=== PATIENT | male | born 1980 | race Caucasian/White ===

== ENCOUNTER 2020-07-08 18:38 | Emergency (ER) | payer OTHER ==
[2020-07-08 21:00] LABS: HEMOGLOBIN 15.9 gm/dl (14.0-17.5); RED BLOOD COUNT 4.97 M/UL (4.20-5.50); WHITE BLOOD COUNT 7.2 K/UL (4.5-11.0)
[2020-07-08 21:22] LABS: BUN/CREATININE RATIO 17 (0-10)
== END 2020-07-09 01:20 | disposition home or self-care (01) ==
LOC: ER1 18:38
PROVIDERS: Preventive Medicine Occupational Medicine
DX: R07.89 Other chest pain (principal); R00.2 Palpitations; Z88.1 Allergy status to other antibiotic agents; R53.1 Weakness; Z20.822 Contact with and (suspected) exposure to COVID-19
CPT/HCPCS: 0240U; 70450; 71045; 80053; 82550; 82553; 83690; 83874; 84439; 84443; 84484; 85025; 85379; 85652; 86140; 93005; 93242; 99285; J7030

== ENCOUNTER 2020-09-28 00:03 | Emergency (ER) | payer OTHER | END 2020-09-28 01:31 | disposition left against medical advice (07) | LOC: ER1 00:03 | DX: Z53.21 Procedure and treatment not carried out due to patient leaving prior to being seen by health care provider (principal) | CPT/HCPCS: 93005 ==

== ENCOUNTER 2020-10-05 07:06 | Observation (INO) | payer OTHER ==
[~2020-10-05] VITALS: Ht 177.8 cm; Wt 98.0 kg
[2020-10-05 07:40] LABS: HEMOGLOBIN 15.4 gm/dl (14.0-17.5); RED BLOOD COUNT 5.16 M/UL (4.20-5.50); WHITE BLOOD COUNT 6.7 K/UL (4.5-11.0)
[2020-10-05 08:24] LABS: BUN/CREATININE RATIO 15 (0-10)
[2020-10-05] MEDS ORDERED: COZAAR 50MG TAB50 MG PO (15:03)
[2020-10-05] MEDS ORDERED: PROTONIX40 MG PO (15:04)
[2020-10-05] MEDS ORDERED: ALLEGRA ALLERG180 MG PO (15:04)
[2020-10-05] MEDS ORDERED: TENORMIN 25 MG25 MG PO (15:04)
[2020-10-05] MEDS ORDERED: LEXAPRO10 MG PO (15:04)
[2020-10-06 00:49] LABS: HEMOGLOBIN 16.1 gm/dl (14.0-17.5); RED BLOOD COUNT 5.05 M/UL (4.20-5.50)
[2020-10-06 01:47] LABS: BUN/CREATININE RATIO 14 (0-10)
[2020-10-06] MEDS ORDERED: ASPIRIN EC81 MG PO (11:30)
[2020-10-11 05:10] LABS: METANEPHRINE, PL 16.9 pg/mL (0.0-88.0); NORMETANEPHRINE, PL 73.5 pg/mL (0.0-125.8)
== END 2020-10-06 13:41 | disposition home or self-care (01) ==
LOC: ER1 07:06 → CDU 14:52 → MED SURG 4 21:01
PROVIDERS: Emergency Medicine; Physician Assistant; ADMIT Internal Medicine
DX: R00.2 Palpitations (principal); R20.2 Paresthesia of skin; I10 Essential (primary) hypertension; I48.0 Paroxysmal atrial fibrillation; F41.9 Anxiety disorder, unspecified; K76.0 Fatty (change of) liver, not elsewhere classified; R74.8 Abnormal levels of other serum enzymes; Z20.822 Contact with and (suspected) exposure to COVID-19; Z88.1 Allergy status to other antibiotic agents; Z79.899 Other long term (current) drug therapy; Z86.79 Personal history of other diseases of the circulatory system; Z83.2 Family history of diseases of the blood and blood-forming organs and certain disorders involving the immune mechanism
CPT/HCPCS: ECHO; 36415; 70450; 71045; 80048; 80053; 82550; 82553; 83690; 83735; 83835; 83874; 84439; 84443; 84484; 85025; 93005; 93306; 99285; G0378; J7030; Q9967; U0002

== ENCOUNTER 2020-11-21 21:55 | Emergency (ER) | payer OTHER ==
[~2020-11-21 21:55] MED LIST: ALLEGRA ALLERG180 MG PO; ASPIRIN EC81 MG PO; COZAAR 50MG TAB50 MG PO; LEXAPRO10 MG PO; PROTONIX40 MG PO; TENORMIN 25 MG25 MG PO
[2020-11-21 22:33] LABS: HEMOGLOBIN 15.2 gm/dl (14.0-17.5); RED BLOOD COUNT 4.79 M/UL (4.20-5.50); WHITE BLOOD COUNT 6.7 K/UL (4.5-11.0)
[2020-11-21 22:58] LABS: BUN/CREATININE RATIO 15 (0-10)
== END 2020-11-22 00:30 | disposition home or self-care (01) ==
LOC: ER1 21:55
PROVIDERS: Physician Assistant
DX: R00.2 Palpitations (principal); I48.91 Unspecified atrial fibrillation; F41.9 Anxiety disorder, unspecified; Z90.49 Acquired absence of other specified parts of digestive tract
CPT/HCPCS: 71045; 80053; 82550; 82553; 83874; 84439; 84443; 84484; 85025; 93005; 99285

== ENCOUNTER 2021-04-09 08:01 | Emergency (ER) | payer OTHER ==
[2021-04-09 08:44] LABS: HEMOGLOBIN 15.7 gm/dl (14.0-17.5); RED BLOOD COUNT 5.14 M/UL (4.20-5.50); WHITE BLOOD COUNT 6.2 K/UL (4.5-11.0)
[2021-04-09 09:08] LABS: BUN/CREATININE RATIO 13 (0-10)
[2021-04-09] MEDS ORDERED: AUGMENTIN 875-1 EACH PO (10:53)
== END 2021-04-09 12:50 | disposition home or self-care (01) ==
LOC: ER1 08:01
PROVIDERS: Emergency Medicine
DX: K52.9 Noninfective gastroenteritis and colitis, unspecified (principal); Q53.9 Undescended testicle, unspecified
CPT/HCPCS: 80053; 81001; 83690; 85025; 99284; J7030; Q9967

== ENCOUNTER 2021-04-27 02:46 | Emergency (ER) | payer BC ==
[~2021-04-27 02:46] MED LIST changes: +AUGMENTIN 875-1 EACH PO
[2021-04-27 03:36] LABS: HEMOGLOBIN 17.3 gm/dl (14.0-17.5); RED BLOOD COUNT 5.44 M/UL (4.20-5.50); WHITE BLOOD COUNT 7.5 K/UL (4.5-11.0)
[2021-04-27 04:06] LABS: BUN/CREATININE RATIO 13 (0-10)
[2021-04-27] MEDS ORDERED: BENTYL 20MG TAB20 MG PO (06:26)
[2021-04-27] MEDS ORDERED: PROBIOTIC & AC1 EACH PO (06:26)
== END 2021-04-27 06:39 | disposition home or self-care (01) ==
LOC: ER1 02:46
PROVIDERS: Student in an Organized Health Care Education/Training Program
DX: R10.9 Unspecified abdominal pain (principal); G89.29 Other chronic pain; R10.817 Generalized abdominal tenderness; K21.9 Gastro-esophageal reflux disease without esophagitis; Z88.1 Allergy status to other antibiotic agents
CPT/HCPCS: 71046; 80053; 81001; 82550; 82553; 83690; 83874; 84484; 85025; 93005; 96374; 99284; J2405

== ENCOUNTER 2021-06-01 08:00 | Observation (INO) | payer BC ==
[~2021-06-01] VITALS: Ht 177.8 cm; Wt 93.4 kg
[~2021-06-01 08:00] MED LIST changes: +BENTYL 20MG TAB20 MG PO; +PROBIOTIC & AC1 EACH PO
[2021-06-01 08:24] LABS: HEMOGLOBIN 16.6 gm/dl (14.0-17.5); RED BLOOD COUNT 5.38 M/UL (4.20-5.50); WHITE BLOOD COUNT 5.9 K/UL (4.5-11.0)
[2021-06-01 09:34] LABS: BUN/CREATININE RATIO 14 (0-10)
[2021-06-01] MEDS ORDERED: SAW PALMETTO160 MG PO (13:43)
== END 2021-06-01 18:19 | disposition home or self-care (01) ==
LOC: ER1 08:00 → CDU 09:58 → CCU 14:25
PROVIDERS: Emergency Medicine; ADMIT Internal Medicine
DX: R07.89 Other chest pain (principal); I48.0 Paroxysmal atrial fibrillation; I10 Essential (primary) hypertension; E88.01 Alpha-1-antitrypsin deficiency; Z20.822 Contact with and (suspected) exposure to COVID-19; Z86.16 Personal history of COVID-19; Z88.1 Allergy status to other antibiotic agents; Z88.2 Allergy status to sulfonamides; Z88.8 Allergy status to other drugs, medicaments and biological substances; Z79.899 Other long term (current) drug therapy
CPT/HCPCS: 71045; 80053; 82550; 82553; 83874; 84484; 85025; 85379; 93005; 99285; G0378; U0002

== ENCOUNTER 2021-06-26 15:28 | Emergency (ER) | payer BC ==
[~2021-06-26 15:28] MED LIST changes: +SAW PALMETTO160 MG PO
[2021-06-26 15:50] LABS: RED BLOOD COUNT 5.15 M/UL (4.20-5.50); WHITE BLOOD COUNT 6.5 K/UL (4.5-11.0)
[2021-06-26 16:14] LABS: BUN/CREATININE RATIO 16 (0-10)
== END 2021-06-26 18:10 | disposition home or self-care (01) ==
LOC: ER1 15:28
PROVIDERS: Physician Assistant
DX: R00.2 Palpitations (principal); R55 Syncope and collapse; Z88.1 Allergy status to other antibiotic agents; Z88.8 Allergy status to other drugs, medicaments and biological substances
CPT/HCPCS: 71045; 80053; 82550; 82553; 84439; 84443; 84484; 85025; 93005; 99285; Q9967

== ENCOUNTER → 2021-11-28 | Day surgery (SDC) | payer OTHER | END | disposition home or self-care (01) | LOC: OR 09:55 | DX: R10.13 Epigastric pain (principal); R63.4 Abnormal weight loss; K29.70 Gastritis, unspecified, without bleeding; K21.9 Gastro-esophageal reflux disease without esophagitis; I10 Essential (primary) hypertension; E78.00 Pure hypercholesterolemia, unspecified; K58.9 Irritable bowel syndrome, unspecified; Z88.1 Allergy status to other antibiotic agents; Z79.899 Other long term (current) drug therapy | CPT/HCPCS: J2704 ==

== ENCOUNTER 2021-12-16 07:25 | Emergency (ER) | payer OTHER ==
[2021-12-16 08:44] LABS: HEMOGLOBIN 15.8 gm/dl (14.0-17.5); RED BLOOD COUNT 4.95 M/UL (4.20-5.50); WHITE BLOOD COUNT 5.6 K/UL (4.5-11.0)
[2021-12-16 09:09] LABS: BUN/CREATININE RATIO 14 (0-10)
== END 2021-12-16 12:30 | disposition home or self-care (01) ==
LOC: ER1 07:25
PROVIDERS: Physician Assistant
DX: R55 Syncope and collapse (principal); K21.9 Gastro-esophageal reflux disease without esophagitis
CPT/HCPCS: 71045; 80053; 82550; 82553; 84484; 85025; 93005; 99284